=== PATIENT | female | born 1955 | race African-American/Black ===

== ENCOUNTER 2017-06-13 08:30 | Day surgery (SDC) | payer OTHER ==
[2017-06-11 14:20] VITALS: BMI 25.9
[2017-06-13] MEDS ORDERED: PROPOFOL 20 ML ONE ×2 (09:01)
[2017-06-13] MEDS ORDERED: LIDOCAINE HCL/PF 2% SDV 5ML VIAL ONE (09:02)
[2017-06-13 10:10] VITALS: TEMP 98
[2017-06-13 10:14] VITALS: BP 124/71; PULSE 78
--- NOTE | 2017-06-18 17:44 | PATH ---
Surgical Pathology Report Patient Name: CELSO BORRERO [facility]. Rec. #: [id number] /Age/Gender: 1955 (Age: 61) / F Account: [id number] Location: [facility]-ENDOSCOPY Taken: 06/13/2017 Received: 06/13/2017 Reported: 06/18/2017 Physicians: Homer Cardenas M.D. Specimen(s) Received A: BX DUODENUM B: BX ANTRUM Clinical History Dysphasia, GERD Rule out celiac disease, gastritis Final Diagnosis A. DUODENUM, BIOPSY: DUODENAL MUCOSA WITH NO PATHOLOGIC FINDINGS. Note: Features suggestive of celiac disease are not identified in this biopsy. B. ANTRUM, BIOPSY: MILD CHRONIC GASTRITIS. IMMUNOSTAIN IS NEGATIVE FOR H. PYLORI ORGANISMS. Electronically Signed Priya Grimes M.D. Gross Description A. Received in formalin, labeled "duodenum" is a kumar, irregular portion of soft tissue measuring 0.3 cm. in greatest dimension. The specimen is submitted in toto in one cassette. B. Received in formalin, labeled "antrum" are 2 kumar, irregular portions of soft tissue measuring 0.3 cm. in greatest dimension. The specimens are submitted in toto in one cassette. [facility]/06/13/2017 [facility]/06/13/2017
== END 2017-06-13 10:15 | disposition home or self-care (01) ==
LOC: FASU-ENDO 08:30
PROVIDERS: ATTEND Internal Medicine Gastroenterology
PROC: 0D748ZZ Dilation of Esophagogastric Junction, Via Natural or Artificial Opening Endoscopic (ICD-10-PCS; 2017-06-13)
PROC: 0DB98ZX Excision of Duodenum, Via Natural or Artificial Opening Endoscopic, Diagnostic (ICD-10-PCS; principal; 2017-06-13 09:18)
PROC: 0DB68ZX Excision of Stomach, Via Natural or Artificial Opening Endoscopic, Diagnostic (ICD-10-PCS; 2017-06-13 09:18)
DX: K22.2 Esophageal obstruction (principal); K44.9 Diaphragmatic hernia without obstruction or gangrene; K29.50 Unspecified chronic gastritis without bleeding
CPT/HCPCS: 88305-TC; 88342-TC

== ENCOUNTER 2019-01-13 07:53 | Day surgery (SDC) | payer OTHER ==
[2019-01-10 16:13] VITALS: BMI 25.8
[2019-01-13] MEDS ORDERED: PROPOFOL 20 ML ONE ×3 (08:04)
[2019-01-13] MEDS ORDERED: LIDOCAINE HCL/PF 2% SDV 5ML VIAL ONE (08:04)
[2019-01-13 09:27] VITALS: TEMP 98.3
[2019-01-13 09:52] VITALS: BP 100/59; PULSE 77
== END 2019-01-13 09:55 | disposition home or self-care (01) ==
LOC: FASU-ENDO 07:53
PROVIDERS: ATTEND Internal Medicine Gastroenterology
PROC: 0DJD8ZZ Inspection of Lower Intestinal Tract, Via Natural or Artificial Opening Endoscopic (ICD-10-PCS; principal; 2019-01-13 08:56)
DX: Z86.010 Personal history of colon polyps (principal); K57.30 Diverticulosis of large intestine without perforation or abscess without bleeding